=== PATIENT | female | born 1955 | race Caucasian/White ===

== ENCOUNTER → 2017-04-18 | Outpatient (CLI) | payer OTHER | END | disposition home or self-care (01) | LOC: CFH 09:13 | PROVIDERS: ATTEND Family Medicine | DX: H53.122 Transient visual loss, left eye (principal) | CPT/HCPCS: 93880 ==

== ENCOUNTER → 2017-04-21 | Outpatient (CLI) | payer OTHER | END | disposition home or self-care (01) | LOC: CFH 12:39 | PROVIDERS: ATTEND Family Medicine | DX: I10 Essential (primary) hypertension (principal); R06.02 Shortness of breath; N28.89 Other specified disorders of kidney and ureter; H53.122 Transient visual loss, left eye; Z87.891 Personal history of nicotine dependence | CPT/HCPCS: 93306 ==